=== PATIENT | male | born 1985 | race Caucasian/White ===

== ENCOUNTER 2017-03-06 22:02 | Emergency (ER) | payer BC, OTHER ==
[~2017-03-06] VITALS: Ht 188 cm; Wt 143.4 kg
[~2017-03-06 22:02] MED LIST: ALBUAER19 INH; CLR10 PO; ERYOPO1 OPR; FLNIN NAE; IBUP-1451 PO; ONDA4TAB10 SL; OXYC1TAB3 PO; TAMS0.4C38 PO; ULT/50 PO
[2017-03-06 22:07] VITALS: BP 152/89; TEMP 36.7; Ht 188 cm; Wt 143.4 kg
[2017-03-06] MEDS ORDERED: PRLSR20 PO (22:38)
[2017-03-06] MEDS ORDERED: FLVHFA110 INH (22:40)
[2017-03-06] MEDS ORDERED: NF406 PO (22:42)
[2017-03-06] MEDS ORDERED: ALBUAER INH (22:44)
[2017-03-06] MEDS ORDERED: AMOXICIL/CLAVU 875MG HOME PACK PO ONE (22:45)
[2017-03-06] MEDS ORDERED: PRED10TA PO (22:47)
[2017-03-06] MEDS ORDERED: AMOX875T PO (23:05)
[2017-03-06 23:08] VITALS: PULSE 80; O2SAT 98
--- NOTE | 2017-03-07 07:36 | EMERGENCY ROOM VISIT NOTE ---
ED Visit Note First contact with patient: 22:31 CHIEF COMPLAINT: Earache HISTORY OF PRESENT ILLNESS: This 31-year-old male presents to the emergency department and states they have had an earache slowly worsening over the past 2- 3 days. The patient has had a recent URI. There is no cough and no hoarseness. They rate the pain as sharp and 8/10. The pain is in the left ear. They have had nothing for the pain. REVIEW OF SYSTEMS: A 6 system review of systems was completed with positives and pertinent negatives listed in the HPI. ALLERGIES: No known medication allergies MEDICATIONS: No chronic medications PMH: Otherwise healthy. Immunizations are up to date. SH: Lives locally, employed PHYSICAL EXAM: Vital Signs: Reviewed Nurse's notes GENERAL: White male, in no acute distress, well-developed, well-nourished. SKIN: Normal. HEART: Regular rate and rhythm without murmurs gallops or rubs. LUNGS: Clear to auscultation and breath sounds equal, no wheezes, rales, or rhonchi. MOUTH: The pharynx is not inflamed and the tonsils are not enlarged. The airway is patent. EARS: The left tympanic membrane is erythematous, inflamed and bulging. The left external auditory canal is clear with no tragus tenderness. The right tympanic membrane is pearly richter without erythema or effusion. The right external auditory canal is clear. LYMPH: There is no lymphadenopathy. ED COURSE: I examined the patient. He appears to have a left otitis media on examination. The patient will be given a course of Augmentin. He is to follow with his primary care physician with any ongoing or persisting symptoms. He may use [id number] medication and was invited back to the ER with any new , worsening, or concerning symptoms. Problem List Medical Problems: (1) CALCULUS OF KIDNEY Status: Resolved (2) HEADACHE Status: Resolved Current/Historical Medications Scheduled Amoxicillin & Pot Clavulanate (Augmentin 875-125 mg), 1 TAB PO BID Fluticasone Propionate (Flovent Hfa), 2 PUFFS INH BID Loratadine (Claritin), 10 MG PO DAILY Omeprazole (Prilosec), 20 MG PO BID Oseltamivir Phosphate (Tamiflu), 75 MG PO BID Prednisone Tab (Prednisone), 10 MG PO DAILY/UD Scheduled PRN Albuterol Sulfate (Proventil Hfa), 2 PUFFS INH BID PRN for ASTHMA Allergies Coded Allergies: BEE STING (Verified Allergy, Severe, THROAT SWELLING, 06/11/14) Vital Signs Date Time Temp Pulse Resp B/P Pulse Ox O2 Delivery O2 Flow Rate FiO2 03/06/17 23:08 80 18 98 03/06/17 22:07 36.7 88 16 152/89 95 Room Air Medications Administered Medications (Trade) Dose Ordered Sig/Martina Route Start Time Stop Time Status Last Admin Dose Admin Amoxicillin/ Clavulanate Potassium (Augmentin 875MG Home Pack) 1 homepack UD ONCE PO 03/06/17 22:45 03/06/17 22:46 DC 03/06/17 23:03 1 HOMEPACK Departure Information Impression Primary Impression: Left otitis media Dispostion Home / Self-Care Condition GOOD Prescriptions Amoxicillin & Pot Clavulanate (Augmentin 875-125 mg) 1 Tab Tab 1 TAB PO BID for 9 Days, #18 TAB Prov: Reed Platt PA-C 03/06/17 Forms HOME CARE DOCUMENTATION FORM, IMPORTANT VISIT INFORMATION Patient Instructions My [facility] Additional Instructions You were seen and evaluated today on an emergency basis only. This is not a substitute for, or an effort to provide, complete comprehensive medical care. It is not possible to recognize and treat all injuries or illnesses in a single emergency department visit. For this reason it is recommended that you followup with your primary care physician with any ongoing or persistent symptoms. Amoxicillin Clavulanate (Augmentin) 875mg: Take one pill twice daily for 10 total days for your infection. All antibiotics can cause diarrhea. If this occurs and you feel worse or it does not resolve in 1-2 days follow up with your doctor or return to the Emergency Department as this could be signs of serious underlying problems. Any medication can cause an allergic reaction, stop the pills immediately and return to the ER for rash, hives, breathing difficulties, or swelling. Use [id number] Sudafed and Afrin for additional relief of symptoms. For baseline pain relief you may alternate ibuprofen and acetaminophen every 4 hours for pain control. Take 600 mg ibuprofen (Advil) and then 4 hours later take 1000 mg acetaminophen (Tylenol). Do not take more than 3000 mg acetaminophen in a single day. You are welcome to return to the emergency department anytime with new, worsening, or concerning symptoms.
== END 2017-03-06 23:09 | disposition home or self-care (01) ==
LOC: C.EDB 22:03 → C.EDC 23:09
DX: H66.92 Otitis media, unspecified, left ear (principal)

== ENCOUNTER 2017-05-26 17:59 | Emergency (ER) | payer OTHER ==
[~2017-05-26] VITALS: Ht 188 cm; Wt 141.0 kg
[~2017-05-26 17:59] MED LIST changes: +ALBUAER INH; -ALBUAER19 INH; -ERYOPO1 OPR; -FLNIN NAE; +FLVHFA110 INH; -IBUP-1451 PO; +NF406 PO; -ONDA4TAB10 SL; -OXYC1TAB3 PO; +PRED10TA PO; +PRLSR20 PO; -TAMS0.4C38 PO; -ULT/50 PO
[2017-05-26 18:05] VITALS: Ht 188 cm; Wt 141.0 kg
[2017-05-26] MEDS ORDERED: IBUP-1450 PO (18:11)
[2017-05-26] MEDS ORDERED: OXYC1TAB3 PO (18:48)
[2017-05-26] MEDS ORDERED: METH4PAK PO (18:48)
--- NOTE | 2017-05-26 18:54 | DIAGNOSTIC IMAGING REPORT ---
L-SPINE MIN 4 VIEWS ROUTINE CLINICAL HISTORY: Right lumbar radiculitis. COMPARISON: Lumbar spine radiographs July 18, 2010. FINDINGS: Alignment of lumbar spine is anatomic. Vertebral body heights are maintained. There is no fracture or suspicious lesion. Disc spaces are preserved. Facet joints are intact. IMPRESSION: Normal lumbar spine radiographs. Electronically signed by: Aakash Al M.D. 05/26/2017 6:52 PM Dictated Date/Time: 05/26/2017 6:47 PM
[2017-05-26 19:33] VITALS: BP 149/90; PULSE 64; TEMP 36.9; O2SAT 96
--- NOTE | 2017-05-26 20:09 | EMERGENCY ROOM VISIT NOTE ---
History First contact with patient: 18:07 Chief Complaint: BACK PAIN Stated Complaint: BACK PAIN, LEG NUMBNESS History of Present Illness The patient is a 31 year old male who presents to the Emergency Room with complaints of back pain radiating down through his right buttock and into the calf. The patient reports that he injured his back a few weeks ago at a yard sale. He believes that he may have twisted his back at that time. The pain seems like it is worsening. He denies any right lower extremity weakness, foot drop, saddle anesthesias or bladder/bowel incontinence. The patient reports that he has had occasional problems with his back in the past. He has not contacted his family doctor regarding his symptoms, and currently rates his pain a 6 out of 10. Review of Systems 10 system review was performed and was negative except for pertinent positives and negatives as indicated in history of present illness Past Medical/Surgical History Medical Problems: (1) CALCULUS OF KIDNEY (2) HEADACHE Medical Problems: (1) Asthma (2) CALCULUS OF KIDNEY (3) Esophagitis (4) HEADACHE Surgical Problems: (1) History of arthroscopic knee surgery (2) History of tonsillectomy and adenoidectomy Family History Kidney disease Kidney stones Social History Smoking Status: Never Smoker Alcohol Use: occasionally Drug Use: none Marital Status: Housing Status: lives with family Occupation Status: employed Current/Historical Medications Scheduled Loratadine (Claritin), 10 MG PO DAILY Methylprednisolone (Medrol Dosepak), 0 PO DAILY Omeprazole (Prilosec), 20 MG PO BID Scheduled PRN Albuterol Sulfate (Proventil Hfa), 2 PUFFS INH BID PRN for ASTHMA Ibuprofen (Motrin), 600 MG PO Q6H PRN for Pain Oxycodone Ir (Roxicodone Ir), 1-2 TAB PO Q4H PRN for Pain Allergies Coded Allergies: BEE STING (Verified Allergy, Severe, THROAT SWELLING, 05/26/17) Physical Exam Vital Signs Date Time Temp Pulse Resp B/P (MAP) Pulse Ox O2 Delivery O2 Flow Rate FiO2 05/26/17 19:33 36.9 64 20 149/90 96 05/26/17 18:05 36.9 64 20 149/90 96 Room Air Physical Exam CONSTITUTIONAL: Healthy and well nourished. Alert and oriented X 3 with positive affect. Patient does not appear in any significant discomfort on exam. HEENT: Normocephalic, atraumatic. Pupils equal, round and reactive. NECK: Full active range of motion without discomfort. RESPIRATORY: Clear to auscultation bilaterally with no wheezing, crackles, rhonchi or stridor. CARDIOVASCULAR: Regular rate and rhythm with no murmurs, rubs or gallops. GASTROINTESTINAL: Bowel sounds present in all quadrants. Soft and nontender to palpation. MUSCULOSKELETAL: Examination shows mild tenderness to palpation through the right lower lumbar paraspinous muscle and SI joints. Negative logroll. Negative sitting straight leg raise. Ankle plantar/dorsiflexion strength is 5 out of 5 and symmetric bilaterally. Pedal pulses are intact. INTEGUMENTARY: No rash or other significant dermatologic conditions noted. NEUROLOGIC: Right foot and toes are sensory intact. Medical Decision & Procedures ER Provider Diagnostic Interpretation: My interpretation of lumbar spine x-rays does not show any obvious fractures, significant degenerative change or spondylolisthesis. Radiologist report is as follows: L-SPINE MIN 4 VIEWS ROUTINE CLINICAL HISTORY: Right lumbar radiculitis. COMPARISON: Lumbar spine radiographs July 18, 2010. FINDINGS: Alignment of lumbar spine is anatomic. Vertebral body heights are maintained. There is no fracture or suspicious lesion. Disc spaces are preserved. Facet joints are intact. IMPRESSION: Normal lumbar spine radiographs. ED Course Patient history and physical exam were performed. Nurse's notes were reviewed. Vital signs were reviewed, showing a blood pressure 149/90. The patient was encouraged to follow-up with his PCP for blood pressure recheck. I did suggest getting an x-ray of the back, and the patient was in agreement. The x-ray was normal. I did discuss several different possible etiologies for his pain, including acute discitis, herniation and lumbar radiculitis. The patient was provided prescriptions for a Medrol Dosepak and OxyIR 5 mg. He was also encouraged to alternate ibuprofen and Tylenol for baseline pain relief. He was instructed to follow-up with his PCP for further management, returning to the emergency department for emergent symptoms such as saddle anesthesias, right leg weakness/foot drop or bladder/bowel incontinence. The patient was happy with plan of care, voiced understanding of all discharge instructions, refused any analgesics while in the emergency department, and rated his pain a 5 out of 10 at the conclusion of my exam. Medical Decision See previous section Impression Primary Impression: Right lumbar radiculitis Departure Information Dispostion Home / Self-Care Prescriptions Oxycodone Ir (Roxicodone Ir) 5 Mg Tab 1-2 TAB PO Q4H Y for Pain, #24 TAB For Initial Treatment Prov: Neel Dockery PA 05/26/17 Methylprednisolone (MEDROL DOSEPAK) 4 Mg Russell 0 PO DAILY, #1 PKT Prov: Neel Dockery PA 05/26/17 Forms HOME CARE DOCUMENTATION FORM, IMPORTANT VISIT INFORMATION Patient Instructions My [facility] Additional Instructions Avoid heavy lifting or sitting for long periods of time. Alternate ice and heat to the lower back region. Ibuprofen 800 mg and/or Tylenol 1000 mg every 8 hours. You may also alternate these medications for more effective pain relief: Ibuprofen --4 HRS--> Tylenol --4 HRS--> ibuprofen --4 HRS--> Tylenol .... Take Medrol Dosepak as prescribed. OxyIR if needed for worse pain. Do not drink alcohol or drive while taking this medication. Follow-up with your family doctor if symptoms are not improving within the next 5-7 days. Return to the emergency department for any bladder/bowel incontinence, numbness of the inner thighs and pubic region, or profound right lower extremity weakness or foot drop.
== END 2017-05-26 19:34 | disposition home or self-care (01) ==
LOC: C.EDB 18:00 → C.EDD 19:34
DX: M54.16 Radiculopathy, lumbar region (principal); J45.909 Unspecified asthma, uncomplicated; K20.9 Esophagitis, unspecified; Z87.442 Personal history of urinary calculi; Z98.890 Other specified postprocedural states; Z79.899 Other long term (current) drug therapy; Z91.030 Bee allergy status; Z84.1 Family history of disorders of kidney and ureter

== ENCOUNTER 2017-11-23 16:23 | Emergency (ER) | payer OTHER ==
[~2017-11-23] VITALS: Ht 188 cm; Wt 145.0 kg
[~2017-11-23 16:23] MED LIST changes: -FLVHFA110 INH; +IBUP-1450 PO; -NF406 PO; +OXYC1TAB3 PO; -PRED10TA PO
[2017-11-23 16:32] VITALS: TEMP 36.7; Ht 188 cm; Wt 145.0 kg
--- NOTE | 2017-11-23 17:14 | EMERGENCY ROOM VISIT NOTE ---
History Report prepared by Aura: Ben Ridley Under the Supervision of: Dr. Miguel Asif M.D. First contact with patient: 16:57 Chief Complaint: FOOT PAIN Stated Complaint: POSSIBLE INFECTION ON B/L FEET FROM TATTO History of Present Illness The patient is a 32 year old male who presents to the Emergency Room with complaints of worsening bilateral foot pain and redness for the past week. The patient states that he got tattoos on the dorsal aspect of both of his feet, and he states that is feels like it is getting infected, and has worsened the last five days. He states that he has had tattoos in the past, and he has never had problems like this in the past. The reports no fevers but does report chills. The patient additionally states that he is on his feet all day, and he has been putting different oils and ointments on it as well as antibiotic ointments. He denies any history of diabetes or IV drug use. He has a history of asthma. Source of History: patient Onset: a week ago Position: foot (bilateral) Quality: other (redness) Timing: worsening Associated Symptoms: + vomiting Review of Systems See HPI for pertinent positives and negatives. A total of ten systems were reviewed and were otherwise negative. Past Medical & Surgical Medical Problems: (1) Asthma (2) CALCULUS OF KIDNEY (3) Esophagitis (4) HEADACHE Surgical Problems: (1) History of arthroscopic knee surgery (2) History of tonsillectomy and adenoidectomy Family History Kidney disease Kidney stones Social History Smoking Status: Never Smoker Alcohol Use: occasionally Drug Use: none Marital Status: Housing Status: lives with family Occupation Status: employed Current/Historical Medications Scheduled Clindamycin Hcl (Cleocin), 450 MG PO TIDM Omeprazole (Prilosec), 40 MG PO DAILY Scheduled PRN Albuterol Sulfate (Proventil Hfa), 2 PUFFS INH BID PRN for ASTHMA Allergies Coded Allergies: BEE STING (Verified Allergy, Severe, THROAT SWELLING, 11/23/17) Physical Exam Vital Signs Date Time Temp Pulse Resp B/P (MAP) Pulse Ox O2 Delivery O2 Flow Rate FiO2 11/23/17 17:42 88 18 148/98 98 11/23/17 16:32 36.7 92 17 172/126 98 Room Air Physical Exam Physical Exam GENERAL: He is oriented to person, place, and time. He appears well-developed and well-nourished. He does not appear distressed. ____ HENT: Exam performed. Head: Normocephalic and atraumatic. Right Ear: External ear normal. No mastoid tenderness. Left Ear: External ear normal. No mastoid tenderness. Mouth/Throat: The oropharynx is clear and moist. No trismus in the jaw. No dental abscesses or uvula swelling. No oropharyngeal exudate or tonsillar abscesses. ____ EYES: Conjunctivae and EOM are normal. Pupils are equal, round, and reactive to light. Right eye exhibits no discharge. Left eye exhibits no discharge. No scleral icterus. ____ NECK: Normal range of motion. Neck supple. No JVD present. No spinous process tenderness present. No carotid bruit present. No rigidity. No tracheal deviation and normal range of motion present. No Brudzinski's sign and no Kernig 's sign noted. ____ CV: Normal rate, regular rhythm, normal heart sounds and intact distal pulses. There is no peripheral edema. Palpable radial pulses bue. ____ PULM/CHEST: Effort normal and breath sounds normal. No respiratory distress. No stridor. He has no wheezes. He has no rales. Chest Wall: He exhibits no tenderness. ____ ABD: The abdomen is soft. Bowel sounds are normal. He has no distension. No mass is present. There is no tenderness. There is no rebound, no guarding, no Tavares's sign and no tenderness at McBurney's point. Rovsig negative MUSC/SKEL: Full ROM of all joints in the lower extremities including the bilateral ankles and toes. Normal range of motion. There is no peripheral edema , tenderness or deformity. LYMPH: No cervical adenopathy. ____ NEURO: He is alert and oriented to person, place, and time. He has normal strength. No cranial nerve deficit or sensory deficit. Coordination and gait normal. GCS eye subscore is 4. GCS verbal subscore is 5. GCS motor subscore is 6. cerbellar tests wnl. ____ SKIN: Dorsal aspect of the bilateral feet there is erythema surrounding the tattoos. No fluctuance. No vesicles. No drainable abscess. No discharge. Nikolsky negative. Skin is warm and dry. He is not diaphoretic. ____ PSYCH: He has a normal mood and affect. His behavior is normal. Judgment and thought content normal. ____ Medical Decision & Procedures ED Course 165: The patient was evaluated in room C8. A complete history and physical exam was performed. Patient's exam is consistent with the appearance of cellulitis. No fevers or history of diabetes, We'll discharge with PO antibiotics. No concern for septic joint suspicions for range of motion and his symptoms of skin rash are limited only to the surrounding areas around the tattoo. Return precautions discussed with patient who agrees. DISCHARGE - Plan of care discussed with patient and questions answered. He will take pictures of the redness, and he will monitor for increased redness and fevers. The patient was given both verbal and printed discharge instructions. The patient verbalized understanding and ability to comply. The patient is to seek outpatient follow up as noted in the discharge instructions. The patient verbalized understanding and ability to comply. The patient is discharged in stable condition. The patient was instructed to return for worsening symptoms. Medical Decision Patient's exam is consistent with the appearance of cellulitis. No fevers or history of diabetes, We'll discharge with PO antibiotics. No concern for septic joint suspicions for range of motion and his symptoms of skin rash are limited only to the surrounding areas around the tattoo. Return precautions discussed with patient who agrees. Medication Reconcilliation Current Medication List: was personally reviewed by me Blood Pressure Screening Patient's blood pressure: Elevated blood pressure Blood pressure disposition: Elevated BP felt to be situational Impression Primary Impression: Cellulitis Scribe Attestation The scribe's documentation has been prepared under my direction and personally reviewed by me in its entirety. I confirm that the note above accurately reflects all work, treatment, procedures, and medical decision making performed by me. The chart was completed utilizing [employer] voice recognition software. Grammatical errors, random word insertions, pronoun errors, and incomplete sentences are an occasional consequence of this system due to software limitations, ambient noise, and hardware issues. Any formal questions or concerns about the content, text, or information contained within the body of this dictation should be directly addressed to the physician for clarification. Departure Information Dispostion Home / Self-Care Prescriptions Clindamycin Hcl (CLEOCIN) 150 Mg Cap 450 MG PO TIDM for 10 Days, #90 CAP Prov: Miguel Asif M.D. 11/23/17 Referrals Adonay Skinner MD (PCP) Forms HOME CARE DOCUMENTATION FORM, IMPORTANT VISIT INFORMATION, School Instructions, Work Instructions Patient Instructions Cellulitis - [facility], [facility] Additional Instructions Return to the emergency department if her fever goes above 100.4 or your skin infection worsens Take the prescribed antibiotic on a full stomach and be sure to take probiotics and eat yogurt while taking the antibiotic Problem Qualifiers Primary Impression: Cellulitis Site of cellulitis: extremity Site of cellulitis of extremity: lower extremity Laterality: unspecified laterality Qualified Codes: L03.119 - Cellulitis of unspecified part of limb
[2017-11-23] MEDS ORDERED: CLIN150C PO (17:21)
[2017-11-23] MEDS ORDERED: OMEP40CA41 PO (17:23)
[2017-11-23 17:42] VITALS: BP 148/98; PULSE 88; O2SAT 98
== END 2017-11-23 17:43 | disposition home or self-care (01) ==
LOC: C.EDB 16:25 → C.EDC 17:43
DX: L03.115 Cellulitis of right lower limb (principal); L03.116 Cellulitis of left lower limb; M79.671 Pain in right foot; M79.672 Pain in left foot